=== PATIENT | male | born 1970 | race Caucasian/White ===

== ENCOUNTER 2020-08-04 18:14 | Emergency (ER) | payer OTHER ==
[~2020-08-04] VITALS: Ht 182.9 cm; Wt 81.7 kg
[~2020-08-04 18:14] MED LIST: NORCO 5-325 TA1 EACH PO; ZANTAC; ZPAK PO
[2020-08-04 18:39] VITALS: BP 112/76
== END 2020-08-04 18:39 | disposition short-term general hospital (02) ==
LOC: M.ERS 18:14
DX: S51.811A Laceration without foreign body of right forearm, initial encounter (principal); Z20.822 Contact with and (suspected) exposure to COVID-19; K21.9 Gastro-esophageal reflux disease without esophagitis; Z79.899 Other long term (current) drug therapy; W26.8XXA Contact with other sharp object(s), not elsewhere classified, initial encounter; Y93.89 Activity, other specified; Y92.89 Other specified places as the place of occurrence of the external cause; Y99.8 Other external cause status